=== PATIENT | female | born 1975 | race Caucasian/White ===

== ENCOUNTER 2017-06-19 16:22 | Emergency (ER) | payer MEDICAID ==
[2017-06-19] MEDS: ACETAMINOPHEN 325 MG TAB PO (18:35)
[2017-06-19] MEDS: IBUPROFEN 600 MG TAB PO (18:35)
== END 2017-06-19 18:40 | disposition home or self-care (01) ==
LOC: FTE 16:22
DX: J06.9 Acute upper respiratory infection, unspecified (principal)
CPT/HCPCS: 99283; Z7502